=== PATIENT | female | born 1940 | race Caucasian/White ===

== ENCOUNTER 2016-03-14 09:35 | Outpatient (CLI) | payer MEDICARE, OTHER | END 2016-03-14 09:45 | LOC: LAB 09:35 | PROVIDERS: ATTEND Family Medicine | DX: E11.9 Type 2 diabetes mellitus without complications (principal); E03.9 Hypothyroidism, unspecified | CPT/HCPCS: 36415; 83036; 84443 ==

== ENCOUNTER 2017-04-23 13:36 | Outpatient (CLI) | payer MEDICARE, OTHER ==
--- NOTE | 2017-04-23 15:06 | Diagnostic Imaging Report ---
MANNY HERNANDEZ (CRYSTAL) - OP [facility] [id number] [facility] [address] [id number] Report Submission Date: Apr 23, 2017 2:07:28 PM CODER Patient Study Name: ANGELICA HERNANDEZ Date: Apr 23, 2017 1:43:33 PM CODER Modality Type: DX Gender: F Description: ABDOMEN : 42 Institution: [facility] Physician: MANNY HERNANDEZ (CRYSTAL) - OP Examination: Abdomen series History: PT COMPLAINED OF CONSTIPATION X 2 MONTHS PT STATED SHE HAD GALLBLADDER AND APPENDIX REMOVED PARTIAL HYSTERECTOMY AND BLADDER REPAIRMENT (Hx) Findings: 2 views obtained of the abdomen. No abnormal dilation of the large or small bowel. Air and stool throughout the large bowel. No suspicious calcification projecting over the renal fossa. Numerous pelvic phleboliths. Surgical clips right upper quadrant. Osseous degenerative spurring. Impression: Moderate large bowel stool - constipation. No obstruction. No suspicious calcifications by plain film sensitivity. Electronically signed on Apr 23, 2017 2:07:28 PM CODER by: Terrence FREDERICK
== END 2017-04-23 13:37 ==
LOC: RAD 13:36
PROVIDERS: ATTEND Nurse Practitioner Family
DX: K59.00 Constipation, unspecified (principal); K29.00 Acute gastritis without bleeding
CPT/HCPCS: 74018